=== PATIENT | male | born 1955 | race African-American/Black ===

== ENCOUNTER 2019-01-10 16:20 | Emergency (ER) | payer MEDICARE, OTHER ==
[~2019-01-10] VITALS: Ht 185.4 cm; Wt 50.0 kg
[~2019-01-10 16:20] MED LIST: ARIP15TA2 PO; CALC-959 PO; CLON1TAB12 PO; DOCU-150 PO; FISH1CAP34 PO; LACT10SO6 MT; LATA2.5D2 EACHEYE; MULT-28 PO; PROT40 PO
[2019-01-10 16:23] VITALS: BP 0/0
== END 2019-01-10 18:30 | disposition home or self-care (01) ==
LOC: ER 17:00
DX: S80.211A Abrasion, right knee, initial encounter (principal); F79 Unspecified intellectual disabilities; W01.0XXA Fall on same level from slipping, tripping and stumbling without subsequent striking against object, initial encounter; Y93.89 Activity, other specified; Y92.89 Other specified places as the place of occurrence of the external cause
CPT/HCPCS: 99283